=== PATIENT | male | born 1980 | race Caucasian/White ===

== ENCOUNTER 2017-12-28 22:22 | Emergency (ER) | payer OTHER ==
[2017-12-28 22:34] VITALS: BMI 30.4
--- NOTE | 2017-12-28 23:11 | DR.GENAD ---
HPI - PCP Primary Care Physician: DR. KIRK - Complaint/Symptoms Chief Complaint:: PATIENT WAS PICKING UP A DOG PEN AND FELT A SHARP PAIN FROM [facility]. 2 HOURS AFTER PATIENT NOTICED A BIG BULGE OVER RIGHT HIP.PATIENT ALSO COMPLAINING OF PAIN IN TESTICLES. PATIENT HAS SEVERE PAIN IN RIGHT HIP. Self Treatment fo Chief Complaint: HYDROCODONE 1100, TRAMADOL, FLEXERIL 1330, 2 OXYCODONE 3 HOURS AGO. HOT EPSON SALT BATH AND ROTATED HEAT AND ICE - Nurses notes reviewed Nurses Notes Review: Yes - Source History Provided: Patient - Mode of Arrival Mode of Arrival: Ambulatory - Timing Onset of Chief Complaint: 12/28/17 PMH - PMH Past Medical History: No Past Surgical History: Yes Surgical History: Appendectomy, Ortho Surgery - Family History History of Family Medical Conditions: No - Social History Does patient currently use any type of tobacco product: Yes Have you used tobacco products in the last 12 months: Yes Type of Tobacco Use: Cigarettes How many years tobacco product used: 20 Does any household member use tobacco: No Alcohol Use: None Do you use any recreational Drugs:: No Lives With: Spouse Lives Where: Home - infectious screening In the last 2 months have you had wt loss of >10#?: NO Have you had fever, night sweats or hemotysis?: No Have you traveled outside the country in the last 6 months?: No Isolation: Standard PE - Vital Signs Vitals: Temperature 99.9 F Pulse Rate 70 Respiratory Rate 20 Blood Pressure 130/75 O2 Sat by Pulse Oximetry 97 - Discharge Plan Condition: Stable Prescriptions: Cyclobenzaprine HCl [FLEXERIL 10 MG *] 10 mg PO TID #15 tab Ibuprofen [MOTRIN TAB 800 MG *] 800 mg PO Q8H PRN #30 tab PRN Reason: Pain/Inflammation - Follow ups/Referrals Follow ups/Referrals: DERRICK KIRK [Primary Care Provider] - 3 days - Instructions Instructions: Back Pain, Adult, [id number], Joint Pain, [id number] Additional Instructions: RETURN TO ED IF WORSE.
[2017-12-28] MEDS ORDERED: NORFLEX INJ IM ONE (23:12)
[2017-12-28] MEDS ORDERED: TORADOL 60 MG VIAL IM ONE (23:12)
[2017-12-28] MEDS ORDERED: TORADOL 30 MG VIAL ONE (23:17)
[2017-12-28] MEDS ORDERED: NORFLEX INJ ONE (23:18)
--- NOTE | 2017-12-28 23:41 | CT ---
CT lumbar spine without contrast Indication: Back pain Comparison: none available Technique: Multiple axial images of the lumbar spine were obtained from the upper abdomen to the pelv is without administration of IV contrast. Sagittal and coronal reformats were performed and reviewed . Findings: Alignment of the lumbar spine is maintained. No evidence for acute cortical disruption or subluxatio n can be seen. The posterior elements appear unremarkable. The prevertebral soft tissues are normal in their appearance. In addition, the surrounding paraspinous soft tissues are unremarkable. IMPRESSION: 1. No evidence for traumatic injury of the lumbar spine. Reported By:
--- NOTE | 2017-12-29 00:02 | RAD ---
Two views of the right hip Indication: Right hip pain after injury. Findings: There is no acute fracture or dislocation within the right hip. Femoroacetabular joint spac es are maintained. Pubic symphysis and SI joints are intact. No localizing soft tissue swelling. Impression: No radiographic abnormality within the right hip. Reported By:
[2017-12-29 01:15] VITALS: BP 122/79
== END 2017-12-29 01:10 | disposition home or self-care (01) ==
LOC: ER 22:22
DX: M25.551 Pain in right hip (principal); M54.89 Other dorsalgia
CPT/HCPCS: 72131; 73501; 96372; 99282; 99283; J1885; J2360